=== PATIENT | female | born 1960 | race Caucasian/White ===

== ENCOUNTER 2017-03-11 17:49 | Emergency (ER) | payer BC ==
[~2017-03-11] VITALS: Ht 172.7 cm; Wt 113.6 kg
[~2017-03-11 17:49] MED LIST: AMOXICILLIN875 MG PO; CEFTIN500 MG PO; HYDROCHLOROTH12.5 M2; LOSARTAN POTASS50 MG PO; MAGIC MOUTHWASH1 M1 PO; ZOCOR20 M1 PO
[2017-03-11] MEDS ORDERED: HCTZ 25MG25 MG PO (18:02)
[2017-03-11] MEDS ORDERED: SIMVASTATIN20 M1 PO (18:02)
[2017-03-11] MEDS ORDERED: [UNRECOGNIZED DRUG - OTHER] PO (18:02)
[2017-03-11] MEDS ORDERED: VALSARTAN160 M1 PO (18:03)
[2017-03-11] MEDS ORDERED: ESTRADIOL0.5 M1 PO (18:03)
[2017-03-11] MEDS ORDERED: AMITRIPTYLINE H25 M2 PO (18:03)
[2017-03-11] MEDS ORDERED: CELEXA 20MG20 MG/TA1 PO (18:03)
[2017-03-11] MEDS ORDERED: SINGULAIR PO (18:03)
[2017-03-11] MEDS ORDERED: LORAZEPAM0.5 M1 PO (18:03)
[2017-03-11] MEDS ORDERED: LASIX40 M1 PO (18:04)
[2017-03-11] MEDS ORDERED: POTASSIUM CHLO10 ME8 PO (18:04)
[2017-03-11] MEDS ORDERED: ESOMEPRAZOLE MA40 M1 PO (18:04)
[2017-03-11 18:41] VITALS: BP 154/79
== END 2017-03-11 18:48 | disposition home or self-care (01) ==
LOC: ED 17:49
DX: S01.01XA Laceration without foreign body of scalp, initial encounter (principal); W22.8XXA Striking against or struck by other objects, initial encounter; Y92.008 Other place in unspecified non-institutional (private) residence as the place of occurrence of the external cause; I10 Essential (primary) hypertension

== ENCOUNTER 2017-03-20 13:22 | Emergency (ER) | payer BC ==
[~2017-03-20 13:22] MED LIST changes: +AMITRIPTYLINE H25 M2 PO; +CELEXA 20MG20 MG/TA1 PO; +ESOMEPRAZOLE MA40 M1 PO; +ESTRADIOL0.5 M1 PO; +HCTZ 25MG25 MG PO; +LASIX40 M1 PO; +LORAZEPAM0.5 M1 PO; +POTASSIUM CHLO10 ME8 PO; +SIMVASTATIN20 M1 PO; +SINGULAIR PO; +VALSARTAN160 M1 PO; +[UNRECOGNIZED DRUG - OTHER] PO
[2017-03-20 13:50] VITALS: BP 144/84
== END 2017-03-20 13:58 | disposition home or self-care (01) ==
LOC: ED 13:22
DX: S01.01XD Laceration without foreign body of scalp, subsequent encounter (principal)

== ENCOUNTER → 2020-05-08 | Outpatient (CLI) | payer BC | LOC: RAD 13:04 | DX: M71.21 Synovial cyst of popliteal space [Baker], right knee (principal); M65.9 Synovitis and tenosynovitis, unspecified ==

== ENCOUNTER 2024-09-03 20:17 | Emergency (ER) | payer BC ==
[~2024-09-03] VITALS: Ht 170.2 cm; Wt 100.0 kg
[2024-09-03] MEDS ORDERED: IRBESARTAN150 M1 PO (21:50)
[2024-09-03] MEDS ORDERED: WEGOVY1.7 MG/0.7 SQ (21:50)
[2024-09-03] MEDS ORDERED: VENLAFAXINE H37.5 M4 PO (21:50)
[2024-09-03] MEDS ORDERED: ATORVASTATIN CA20 MG PO (21:50)
[2024-09-03] MEDS ORDERED: CELECOXIB100 M1 PO (21:50)
[2024-09-03] MEDS ORDERED: SINGULAIR 110 MG/TAB PO (21:51)
[2024-09-03 21:52] VITALS: BP 157/93
[2024-09-03] MEDS ORDERED: Tdap Vaccine 0.5 ML SYRINGE IM ONE (23:00)
== END 2024-09-03 23:41 | disposition home or self-care (01) ==
LOC: ED 20:17
DX: S61.412A Laceration without foreign body of left hand, initial encounter (principal); Z23 Encounter for immunization; W26.0XXA Contact with knife, initial encounter; Y92.000 Kitchen of unspecified non-institutional (private) residence as the place of occurrence of the external cause
CPT/HCPCS: 90715